=== PATIENT | female | born 1960 | race Caucasian/White ===

== ENCOUNTER 2017-11-19 12:14 | Emergency (ER) | payer BC ==
[~2017-11-19] VITALS: Ht 175.3 cm; Wt 108.0 kg
[2017-11-19] MEDS ORDERED: morphine INJ 10 MG/ML 1ML (SYR OR VIAL) IM STA (12:34)
--- NOTE | 2017-11-19 13:06 | ED Upper Extremity ---
General Chief Complaint: Upper Extremity Stated Complaint: DISLOCATED R SHOULDER Nursing Triage Note: TRIPPED AND FELL LANDING ON R SHOULDER. WAS SENT FROM [facility]. Nursing Sepsis Screen: No Definite Risk Source: patient, spouse Exam Limitations: no limitations History of Present Illness Date Seen by Provider: Nov 19, 2017 Time Seen by Provider: 12:28 Allergies and Home Medications Allergies Coded Allergies: Penicillins (Verified Allergy, Unknown, 11/19/17) Past Unypnle-Jehmst-Cepgrc Hx Patient Social History Alcohol Use: Denies Use Recreational Drug Use: No Smoking Status: Current Everyday Smoker Recent Foreign Travel: No Contact w/Someone Who Travel: No Recent Infectious Disease Expo: No Surgeries History of Surgeries: Yes Surgeries: Gallbladder, Orthopedic Cardiovascular History of Cardiac Disorders: Yes Cardiac Disorders: High Cholesterol, Hypertension Neurological History of Neurological Disord: No Genitourinary History of Genitourinary Disor: No Endocrine History of Endocrine Disorders: No HEENT History of HEENT Disorders: No Cancer History of Cancer: No Psychosocial History of Psychiatric Problem: No Integumentary History of Skin or Integumenta: No Blood Transfusions History of Blood Disorders: No Physical Exam Vital Signs Vital Signs - First Documented 11/19/17 12:28 Temp 98.0 Pulse 60 Resp 18 B/P (MAP) 179/95 (123) Pulse Ox 98 Capillary Refill : Less Than 3 Seconds Progress/Results/Core Measures Results/Orders My Orders Orders - CAMMIE MCCORMICK Morphine Injection (Morphine Injection (11/19/17 12:34) Vital Signs/I&O Vital Sign - Last 12Hours 11/19/17 12:28 Temp 98.0 Pulse 60 Resp 18 B/P (MAP) 179/95 (123) Pulse Ox 98 Blood Pressure Mean: 123 Departure Impression Impression: Primary Impression: Fracture of surgical neck of right humerus Qualified Codes: S42.214A - Unspecified nondisplaced fracture of surgical neck of right humerus, initial encounter for closed fracture Disposition: 01 HOME, SELF-CARE Condition: Improved Departure-Patient Inst. Decision time for Depature: 13:30 Referrals: NO,LOCAL PHYSICIAN (PCP/Family) Primary Care Physician Patient Instructions: Shoulder Fracture (DC) Add. Discharge Instructions: All discharge instructions reviewed with patient and/or family. Voiced understanding. Medications as instructed. No ibuprofen or Aleve. Ice pack for 20 minute intervals as needed for pain and swelling. Left arm activities only until released by the orthopedic surgeon of your choice. Follow-up with the orthopedic surgeon of your choice in [place], [place] within the next 7 days. Call Monday morning for an appointment time. Go to the nearest emergency department for worsened pain, discoloration, chest pain, shortness of air, headache, dizziness, or any other concerns. Scripts Oxycodone HCl/Acetaminophen (Oxycodone-Acetaminophen 5-325) 1 Each Tablet 1 EACH PO Q4H Y for pain, #20 TAB 0 Refills Prov: CAMMIE MCCORMICK 11/19/17 Work/School Note: Local Medical Staff Listing CAMMIE MCCORMICK Nov 19, 2017 13:06
[2017-11-19] MEDS ORDERED: OXYC-471 PO (13:31)
[2017-11-19] MEDS ORDERED: oxyCODONE/APAP 5/325MG (PERCOCET 5) TABLET PO STA (13:33)
[2017-11-19 13:44] VITALS: BP 160/95
== END 2017-11-19 13:45 | disposition home or self-care (01) ==
LOC: EDUNIT# 12:14 → ER 12:15
DX: S42.291A Other displaced fracture of upper end of right humerus, initial encounter for closed fracture (principal); E78.00 Pure hypercholesterolemia, unspecified; I10 Essential (primary) hypertension; F17.200 Nicotine dependence, unspecified, uncomplicated; Z88.0 Allergy status to penicillin; W19.XXXA Unspecified fall, initial encounter
CPT/HCPCS: 96372

== ENCOUNTER → 2017-11-19 | Outpatient (CLI) | payer BC ==
[~2017-11-19] MED LIST: OXYC-471 PO
--- NOTE | 2017-11-19 12:16 | Diagnostic Imaging Report ---
Right shoulder. INDICATION: Injury, shoulder pain. 3 views were obtained. FINDINGS: There is an impacted slightly comminuted essentially nondisplaced fracture of surgical neck of the humerus. There is also a 6 x 18 MM bony excrescence along the inferior margin of the acromion. I suspect that this is long-standing in nature. In addition, there does appear to be a lucency involving the glenoid. This is probably chronic as well. 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 The humeral head also seems somewhat inferiorly positioned with the glenoid. This may be secondary to mild chronic subluxation. The soft tissues are unremarkable. IMPRESSION: 1. There is an impacted essentially nondisplaced slightly comminuted fracture of the surgical neck of humerus. If further evaluation to extent of injury to the humerus is desired, then CT would be recommended. 2. There is no acute bony abnormality noted otherwise. 3. An attempt was made to contact Emily Franco APRN, but these results that attempt was unsuccessful. Dictated by: Dictated on workstation # [id number]
== END ==
LOC: RAD 11:39
PROVIDERS: ATTEND Nurse Practitioner Family
DX: S42.214A Unspecified nondisplaced fracture of surgical neck of right humerus, initial encounter for closed fracture (principal)
CPT/HCPCS: 73030